=== PATIENT | male | born 1985 | race Two or more races ===

== ENCOUNTER → 2019-08-21 | Emergency (ER) | payer OTHER, SELFPAY ==
[~2019-08-21] VITALS: Ht 172.7 cm; Wt 81.6 kg
[~2019-08-21] MED LIST: MAGNESIUM CITRATE SOLUTION 300 ML BTL PO ONE; MORPHINE SULFATE 4 MG/ML SYR/VIAL IV ONE; ONDANSETRON HCL 4 MG/2 ML VIAL IV ONE; ONDANSETRON ODT 4 MG TAB PO ONE; SODIUM CHLORIDE 0.9% 1,000 ML IV ONE
[2019-08-21 22:04] LABS: Albumin 4.4 g/dL (3.4-5.0); BUN/Creatinine Ratio 15.6; Calcium 9.6 mg/dL (8.5-10.1); Potassium 4.3 mmol/L (3.5-5.1)
[2019-08-21 22:12] LABS: Bilirubin, Total 0.6 mg/dL (0.2-1.0); Total Protein 8.4 g/dL (6.4-8.2)
[2019-08-21 22:16] LABS: Basophils # (auto) 0 10 ^3/uL (0-0.2); Basophils % (auto) 0.3 % (0.0-2.0); Eosinophils # (auto) 0 10 ^3/uL (0-0.8); Eosinophils % (auto) 0.2 % (0.0-7.0); Hematocrit 49.6 % (41.0-53.0); Hemoglobin 16.7 g/dL (13.5-17.5); Lymphocytes # (auto) 1.2 10 ^3/uL (0.4-5.4); Lymphocytes % (auto) 9.4 % (10.0-50.0); Mean Corpuscular Hemoglobin 30.9 pg (28.0-32.0); Mean Corpuscular Hgb Conc. 33.6 g/dL (32.0-36.0); Mean Corpuscular Volume 92.1 fL (80.0-100.0); Monocytes # (auto) 0.7 10 ^3/uL (0-1.3); Monocytes % (auto) 5.8 % (0.0-12.0); Neutrophils # (auto) 10.8 10 ^3/uL (1.6-8.6); Neutrophils % (auto) 84.3 % (37.0-80.0); Nucleated Red Blood Cells % 0.1 %; Platelet Count (auto) 298 10^3/uL (140-450); Red Blood Cells 5.38 10^6/uL (4.5-5.90); Red Cell Distribution Width 13.1 % (11.8-14.3); White Blood Cell 12.8 10^3/uL (4.4-10.8)
[2019-08-21 23:24] VITALS: BP 129/73
[2019-08-22 03:24] LABS: Urine Bacteria FEW /hpf (None Seen); Urine Blood Negative /uL (Negative); Urine Mucus FEW (None Seen); Urine Specific Gravity 1.031 (1.001-1.035); Urine WBC <1 /hpf (0 - 3)
== END | disposition home or self-care (01) ==
LOC: ER 20:57
DX: R10.30 Lower abdominal pain, unspecified (principal); R50.9 Fever, unspecified; Z20.828 Contact with and (suspected) exposure to other viral communicable diseases
CPT/HCPCS: 36415; 71045; 74176; 80053; 81001; 85025; 87070; 87635; 87804; 87880; 96361; 96374; 96375; 96376; 99285; J2270; J2405; J7030